=== PATIENT | male | born 1940 | race Hispanic/Latino ===

== ENCOUNTER → 2017-08-07 | Day surgery (SDC) | payer OTHER ==
[2017-08-06 17:02] LABS: BASOPHILS % 0.4 % (0.0-1.0); EOSINOPHILS # (AUTO) 0.1 (0.0-0.4); EOSINOPHILS % 0.9 % (0.0-6.0); HEMATOCRIT 41.9 % (38.2-49.6); HEMOGLOBIN 14.2 g/dL (14.0-18.0); LYMPHOCYTES # (AUTO) 2.2 (1.0-3.2); LYMPHOCYTES % 29.2 % (18.0-39.1); MEAN CORPUSCULAR HEMOGLOBIN 29.5 pg (28-32); MEAN CORPUSCULAR HGB CONC 33.9 g/dL (31-35); MEAN CORPUSCULAR VOLUME 87.1 fL (81-99); MONOCYTES # (AUTO) 0.5 (0.2-0.8); MONOCYTES % 7.2 % (4.4-11.3); NEUTROPHILS # (AUTO) 4.6 (2.1-6.9); NEUTROPHILS % 61.8 % (38.7-80.0); PLATELET COUNT 171 x10e3/uL (140-360); RED BLOOD COUNT 4.81 x10e6/uL (4.3-5.7); RED CELL DISTRIBUTION WIDTH 13.8 % (11.7-14.4)
[~2017-08-07] MED LIST: ACETAMINOPHEN650 M1 PO; ARANESP100 MCG/0. SQ; CARVEDILOL25 MG PO; CARVEDILOL3.125 MG PO; CLONIDINE HCL0.2 MG PO; CREON DR 3,0001 EACH PO; CRESTOR20 MG PO; DILTIAZ ER PO; DIPHENHYDRAMINE25 M2 PO; GABAPENTIN400 MG PO; GLIMEPIRIDE2 MG PO; GLYBURIDE5 MG PO; HEPARIN SO5000 UNIT/ IV; HYDRALAZINE HC100 MG PO; HYDROCHLOROTHIA25 MG PO; IBUPROFEN400 MG PO; ISOSORBIDE DINI30 MG PO; JANUVIA100 MG PO; LISINOPRIL-HCT1 EAC1 PO; LISINOPRIL10 MG PO; LOPERAMIDE2 MG PO; LYRICA75 MG PO; METFORMIN HCL500 M2 PO; METHOCARBAMOL750 MG PO; METOCLOPRAMIDE10 MG PO; MIDAZOLAM HCL 2 MG/2 ML VIAL ONE; NAFCILLIN2 GM/100 M IV; NEOMYCIN-POLYMY10 ML; NIFEDIPINE XL30 MG PO; NITROGLYCERIN0.4 MG SL; PLAVIX75 MG PO; PRAVASTATIN SOD40 MG PO; PRAVASTATIN SOD80 MG PO; PROPOFOL IV EMULSION 10 MG/ML 20 ML VIAL ONE; PROTEIN POWDER454 GM PO; RIFAMPIN300 MG PO; SODIUM CHLORI1000 ML IV; SUCRALFATE1 GM PO; TRADJENTA5 MG PO; TRAJENTA; ULTRAM 50MG50 MG PO; VALACYCLOVIR500 MG PO; VICTOZA 3-0.6 MG/0.1 SC; VITAMIN RENAL PO; ZESTRIL20 MG PO; ZOFRAN ODT4 MG IVP; [UNRECOGNIZED DRUG - OTHER] PO
--- OUTSIDE RECORDS SUMMARY | 2017-08-07 06:07 | XMS REPORT ---
Author Organization Unknown Address [address] [place] [address] Phone [phone] Care Team Providers Care Bobbin Collector Name Role Phone RADHA "HOMERO" FLAVIO WILKINSON 3 [phone] GARRET LIRA 61 Unavailable RON ANAND MD 111 [phone] LISA ESTEBAN 107 [phone] Allergies Code Code System Name Reaction Severity Status Onset NKDA Medications Name Status Start Date Stop Date Allzital 25 mg-325 mg tablet Take 2 tablets every 4 hours by oral route as needed for 30 days. Active Not available amoxicillin 500 mg capsule Completed 04/01/2016 carvedilol 3.125 mg tablet Active Not available clarithromycin 500 mg tablet Completed 04/01/2016 clindamycin HCl 150 mg capsule Completed 04/01/2016 clopidogrel 75 mg tablet Active Not available clotrimazole 1 % topical cream Completed 07/03/2016 Creon 3,000 unit-9,500 unit-15,000 unit capsule,delayed release take 1 capsule with each meal and at bedtime Active Not available dicyclomine 20 mg tablet Completed 04/03/2016 esomeprazole magnesium 40 mg capsule,delayed release Take 1 capsule every day by oral route for 30 days. Active Not available gabapentin 400 mg capsule Completed 06/19/2017 glimepiride 4 mg tablet Active Not available hydrocodone 5 mg-acetaminophen 325 mg tablet Completed 07/03/2016 ibuprofen 400 mg tablet Take 1 tablet 6 times a day by oral route. Active Not available isosorbide dinitrate 30 mg tablet Active Not available Januvia 100 mg tablet Take 1 tablet every day by oral route for 90 days. Completed 07/03/2016 levofloxacin 500 mg tablet Completed 04/03/2016 lidocaine 5 % topical ointment APPLY TO AFFECTED AREA(S) BY TOPICAL ROUTE 1-4 TIMES DAILY NEEDED Active Not available lisinopril 20 mg-hydrochlorothiazide 25 mg tablet Active Not available Lyrica 150 mg capsule Completed 07/23/2017 Lyrica 75 mg capsule Active Not available metformin 500 mg tablet Active Not available metoclopramide 10 mg tablet Active Not available metoclopramide 5 mg tablet Completed 04/03/2016 yltpzgmu-awbijgsjk-dxobscmq 3.5 mg/mL-10,000 unit/mL-0.1% eye drops Completed 03/19/2017 nitroglycerin 0.4 mg sublingual tablet Completed 03/19/2017 omeprazole 20 mg capsule,delayed release Completed 04/03/2016 omeprazole 40 mg capsule,delayed release Completed 04/03/2016 pantoprazole 40 mg tablet,delayed release Completed 04/03/2016 pravastatin 80 mg tablet Active Not available ReliaMed Safety Seal Lancets 30 gauge Completed 11/21/2016 sildenafil (antihypertensive) 20 mg tablet take 2, up to 5 tablets, aabout 20 minutes prior to sexual activity Active Not available Suprep Bowel Prep Kit 17.5 gram-3.13 gram-1.6 gram oral solution Completed 07/23/2017 tamsulosin 0.4 mg capsule Active Not available Tradjenta 5 mg tablet Take 1 tablet every day by oral route for 90 days. Completed 06/19/2017 True Metrix Glucose Test Strip Completed 07/23/2017 True Metrix Level 1 solution Completed 07/03/2016 TRUEplus Lancets 28 gauge Completed 07/23/2017 valacyclovir 1 gram tablet Completed 2017 Victoza 3-Damaso 0.6 mg/0.1 mL (18 mg/3 mL) subcutaneous pen injector Active Not available Notes: Pt did not bring all of his meds and does not know what he is suppose to be taking 06/19/17mm Problems Name Status Onset Date Source Type 2 Diabetes Mellitus Active 02/02/2015 History Pure Hypercholesterolemia Unknown 02/02/2015 History Pure Hyperglyceridemia Unknown 02/02/2015 History Open-angle Glaucoma Active 02/02/2015 History Hypertensive Heart Failure Active 02/02/2015 History Arteriosclerosis of Coronary Artery Bypass Graft Unknown 02/02/2015 History Gastroesophageal Reflux Disease without Esophagitis Active 02/02/2015 History Coronary Bypass Graft Finding Active 02/02/2015 History Long-term Current Use of Insulin Active 02/02/2015 History 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 History Long-term Current Use of Drug Therapy Active 02/02/2015 History Chronic Congestive Heart Failure Unknown 02/14/2016 Chronic Diastolic Heart Failure Active 02/14/2016 Mixed Hyperlipidemia Active 07/03/2016 Morbid Obesity Active 03/19/2017 Herpes Zoster Active 2017 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 Procedures Date Name Performed by 01/10/2016 Removal of Gallbladder Information not available 04/11/2014 Coronary Artery Bypass/reop Information not available 02/14/2016 Electrocardiogram [facility] [address] [facility] [address] [place] [phone] (Work [address]) 03/19/2017 Electrocardiogram [facility] [address] [facility] [address] [place] [address] (Work Place) Notes: 08/02/2015: Bilateral inguinal hernia repair; Surgery Date: at 23 years old CABG Lab Results Date Name Specimen Result Interpretation Description Value Range Status Address 04/24/2017 Urinalysis, Dipstick Color Glucose negative [facility]: [address] [facility] [address], [place] Color Bilirubin negative [facility]: [address] [facility] [address], [place] Color Ketones trace [facility]: [address] [facility] [address], [place] Color Specific [place] 1.025 [facility]: [address] [facility] [address], [place] Color Blood negative [facility]: [address] [facility] [address], [place] [facility] [address] [facility] [address], [place] Color Protein negative [facility]: [address] [facility] [address], [place] Color Urobilinogen 0.2 [facility]: [address] [facility] [address], [place] Color Nitrites negative [facility]: [address] [facility] [address], [place] Color Leukocytes negative [facility]: [address] [facility] [address], [place] 03/19/2017 CBC W/ Auto Diff Normal White Blood Cell Count 6.5 thousand/uL 3.8-10.8 thousand/uL Final [facility]: [address], [place] Normal Red Blood Cell Count 5.33 million/uL 4.20-5.80 million/ uL [facility]: [address], [place] Normal Hemoglobin 15.3 g/dL 13.2-17.1 g/dL [facility]: [address], [place] Normal Hematocrit 45.6 % 38.5-50.0 % Final [facility]: [address] [place] Normal Mcv 85.6 fL 80.0-100.0 fL Final [facility]: [address] [place] Normal Mch 28.7 pg 27.0-33.0 pg Final [facility]: [address] [place] Normal Mchc 33.6 g/dL 32.0-36.0 g/dL Final [facility]: [address] [place] Normal Rdw 13.8 % 11.0-15.0 % Final [facility]: [address] [place] Low Platelet Count 129 thousand/uL 140-400 thousand/uL Final [facility]: [address] [place] High Mpv 12.6 fL 7.5-12.5 fL Final [facility]: [address] [place] Normal Absolute Neutrophils 4394 cells/uL 6892-7169 cells/uL Final [facility]: [address] [place] Normal Absolute Lymphocytes 1547 cells/uL 850-3900 cells/uL Final [facility]: [address] [place] Normal Absolute Monocytes 462 cells/uL 200-950 cells/uL Final [facility]: [address] [place] Normal Absolute Eosinophils 59 cells/uL 15-500 cells/uL Final [facility]: [address] [place] Normal Absolute Basophils 39 cells/uL 0-200 cells/uL Final [facility]: [address] [place] Normal Neutrophils 67.6 % Final [facility]: [address] [place] Normal Lymphocytes 23.8 % Final [facility]: [address] [place] Normal Monocytes 7.1 % Final [facility]: [address] [place] Normal Eosinophils 0.9 % Final [facility]: [address] [place] Normal Basophils 0.6 % Final [facility]: [address] [place] 03/19/2017 PSA, Serum or Plasma Normal PSA, Total 0.8 NG/mL < or= 4.0 NG/mL Final [facility]: [address] [place] [address] 03/19/2017 T4, Total, Serum Normal T4 (Thyroxine), Total 8.3 mcg/ dL 4.5-12.0 mcg/dL Final [facility]: [address] [place] [address] 03/19/2017 TSH, Serum or Plasma Normal Tsh 1.64 mIU/L 0.40-4.50 mIU/L Final [facility]: [address] [place] [address] 03/19/2017 HbA1C (Hemoglobin a1C), Blood High Hemoglobin a1C 7.9 % of total HGB <5.7 % of total HGB Final [facility]: [address] [place] [address] EAG (mg/dL) 180 (calc) Final [facility]: [address] [place] [address] EAG (mmol/L) 10.0 (calc) Final [facility]: [address] [place] [address] 03/19/2017 CMP, Serum or Plasma High Glucose 234 mg/dL 65-99 mg/ dL Final [facility]: [address] [place] [address] Normal Urea Nitrogen (BUN) 19 mg/dL 7-25 mg/dL Final [facility]: [address] [place] [address] Normal Creatinine 0.96 mg/dL 0.70-1.18 mg/dL Final [facility]: [address] [place] [address] Normal eGFR Non-afr. Vincentian 78 mL/min/1.73m2 > or=60 mL/min/ 1.73m2 Final [facility]: [address] [place] [address] Normal eGFR 90 mL/min/1.73m2 > or=60 mL/min/ 1.73m2 Final [facility]: [address] [place] [address] BUN/creatinine Ratio not applicable (calc) 6-22 (calc) Final [facility]: [address] [place] [address] Normal Sodium 136 mmol/L 135-146 mmol/L Final [facility]: [address] [place] [address] Normal Potassium 4.4 mmol/L 3.5-5.3 mmol/L Final [facility]: [address] Normal Chloride 98 mmol/L 98-110 mmol/L Final [facility]: [address] Normal Carbon Dioxide 27 mmol/L 20-31 mmol/L Final [facility]: [address] Normal Calcium 9.1 mg/dL 8.6-10.3 mg/dL Final [facility]: [address] Normal Protein, Total 7.5 g/dL 6.1-8.1 g/dL Final [facility]: [address] Normal Albumin 4.3 g/dL 3.6-5.1 g/dL Final [facility]: [address] Normal Globulin 3.2 g/dL (calc) 1.9-3.7 g/dL (calc) Final [facility]: [address] Normal Albumin/globulin Ratio 1.3 (calc) 1.0-2.5 (calc) Final [facility]: [address] Normal Bilirubin, Total 1.1 mg/dL 0.2-1.2 mg/dL Final [facility]: [address] Normal Alkaline Phosphatase 56 U/L 40-115 U/L Final [facility]: [address] Normal Ast 20 U/L 10-35 U/L Final [facility]: [address] Normal Alt 17 U/L 9-46 U/L Final [facility]: [address] 03/19/2017 Lipid Panel, Serum Normal Cholesterol, Total 170 mg/dL <200 mg/dL Final [facility]: [address] Low HDL Cholesterol 34 mg/dL >40 mg/dL Final [facility]: [address] High Triglycerides 184 mg/dL <150 mg/dL Final [facility]: [address] High LDL-cholesterol 105 mg/dL (calc) Final [facility]: [address] High Chol/hdlc Ratio 5.0 (calc) <5.0 (calc) Final [facility]: [address] High Non HDL Cholesterol 136 mg/dL (calc) <130 mg/dL (calc) Final [facility] [address] [facility] Lipid Panel, Serum Normal Cholesterol, Total 170 mg/dL 125-200 mg/dL Final [facility]: [address] Low HDL Cholesterol 34 mg/dL > or=40 mg/dL Final [facility]: [address] High Triglycerides 261 mg/dL <150 mg/dL Final [facility]: [address] Normal LDL-cholesterol 84 mg/dL (calc) <130 mg/dL (calc) Final [facility]: [address] Normal Chol/hdlc Ratio 5.0 (calc) < or=5.0 (calc) Final [facility]: [address] Normal Non HDL Cholesterol 136 mg/dL (calc) Final [facility]: [address] 11/22/2016 CBC W/ Auto Diff Normal White Blood Cell Count 6.9 thousand/uL 3.8-10.8 thousand/uL Final [facility]: [address] Normal Red Blood Cell Count 5.30 million/uL 4.20-5.80 million/ uL Final [facility]: [address] Normal Hemoglobin 15.2 g/dL 13.2-17.1 g/dL Final [facility]: [address] Normal Hematocrit 45.4 % 38.5-50.0 % Final [facility]: [address] Normal Mcv 85.7 fL 80.0-100.0 fL Final [facility]: [address] [facility] Normal Mch 28.7 pg 27.0-33.0 pg Final [facility]: [address] Normal Mchc 33.5 g/dL 32.0-36.0 g/dL Final [facility]: [address] Normal Rdw 13.7 % 11.0-15.0 % Final [facility]: [address] [place] Normal Platelet Count 140 thousand/uL 140-400 thousand/uL Final [facility]: [address] [place] Normal Mpv 12.5 fL 7.5-12.5 fL Final [facility]: [address] [place] Normal Absolute Neutrophils 4306 cells/uL 2289-6600 cells/uL Final [facility]: [address] [place] Normal Absolute Lymphocytes 2008 cells/uL 850-3900 cells/uL Final [facility]: [address] [place] Normal Absolute Monocytes 511 cells/uL 200-950 cells/uL Final [facility]: [address] [place] Normal Absolute Eosinophils 48 cells/uL 15-500 cells/uL Final [facility]: [address] [place] Normal Absolute Basophils 28 cells/uL 0-200 cells/uL Final [facility]: [address] [place] Normal Neutrophils 62.4 % Final [facility]: [address] [place] Normal Lymphocytes 29.1 % Final [facility]: [address] [place] Normal Monocytes 7.4 % Final [facility]: [address] [place] Normal Eosinophils 0.7 % Final [facility]: [address] [place] Normal Basophils 0.4 % Final [facility]: [address] [place] 11/22/2016 CMP, Serum or Plasma High Glucose 122 mg/dL 65-99 mg/ dL Final [facility]: [address] [place] Normal Urea Nitrogen (BUN) 20 mg/dL 7-25 mg/dL Final [facility]: [address] [place] Normal Creatinine 1.17 mg/dL 0.70-1.18 mg/dL Final [facility]: [address] [facility] Normal eGFR Non-afr. Vincentian 61 mL/min/1.73m2 > or=60 mL/min/ 1.73m2 Final [facility]: [address] [place] Normal eGFR 71 mL/min/1.73m2 > or=60 mL/min/ 1.73m2 Final [facility]: [address] BUN/creatinine Ratio not applicable (calc) 6-22 (calc) Final [facility]: [address] [facility] Normal Sodium 136 mmol/L 135-146 mmol/L Final [facility]: [address] Normal Potassium 4.2 mmol/L 3.5-5.3 mmol/L Final [facility]: [address] Normal Chloride 101 mmol/L 98-110 mmol/L Final [facility]: [address] Normal Carbon Dioxide 23 mmol/L 20-31 mmol/L Final [facility]: [address] Normal Calcium 9.2 mg/dL 8.6-10.3 mg/dL Final [facility]: [address] Normal Protein, Total 7.8 g/dL 6.1-8.1 g/dL Final [facility]: [address] Normal Albumin 4.4 g/dL 3.6-5.1 g/dL Final [facility]: [address] Normal Globulin 3.4 g/dL (calc) 1.9-3.7 g/dL (calc) Final [facility]: [address] Normal Albumin/globulin Ratio 1.3 (calc) 1.0-2.5 (calc) Final [facility]: [address] Normal Bilirubin, Total 1.2 mg/dL 0.2-1.2 mg/dL Final [facility]: [address] Normal Alkaline Phosphatase 62 U/L 40-115 U/L Final [facility]: [address] Normal Ast 19 U/L 10-35 U/L Final [facility]: [address] Normal Alt 20 U/L 9-46 U/L Final [facility] [address] [facility] 11/22/2016 HbA1C (Hemoglobin a1C), Blood High Hemoglobin a1C 7.3 % of total HGB <5.7 % of total HGB Final [facility]: [address] EAG (mg/dL) 163 (calc) Final [facility]: [address] EAG (mmol/L) 9.0 (calc) Final [facility]: [address] [address], [place] 11/21/2016 CBC W/ Auto Diff No observation recorded. [facility] [facility] [place] 11/21/2016 HbA1C (Hemoglobin a1C), Blood No observation recorded. [facility] ([facility]): [address] [facility], [place] 11/21/2016 CMP, Serum or Plasma No observation recorded. [facility] ([facility]): [address] [facility], [place] 11/21/2016 Lipid Panel, Serum No observation recorded. [facility] [address] [facility] [place] 07/03/2016 Lipid Panel, Serum Normal Cholesterol, Total 168 mg/dL 125-200 mg/dL Final [facility]: [address] [facility], [place] Low HDL Cholesterol 36 mg/dL > or=40 mg/dL Final [facility]: [address] [facility], [place] High Triglycerides 196 mg/dL <150 mg/dL Final [facility]: [address] [facility], [place] Normal LDL-cholesterol 93 mg/dL (calc) <130 mg/dL (calc) Final [facility]: [address] [facility], [place] Normal Chol/hdlc Ratio 4.7 (calc) < or=5.0 (calc) Final [facility]: [address] [facility], [place] Normal Non HDL Cholesterol 132 mg/dL (calc) Final [facility]: [address] [facility], [place] 07/03/2016 CMP, Serum or Plasma High Glucose 189 mg/dL 65-99 mg/ dL Final [facility]: [address] [facility], [place] Normal Urea Nitrogen (BUN) 14 mg/dL 7-25 mg/dL Final [facility]: [address] [facility], [place] Normal Creatinine 0.94 mg/dL 0.70-1.18 mg/dL Final [facility]: [address] [facility], [place] Normal eGFR Non-afr. Vincentian 80 mL/min/1.73m2 > or=60 mL/min/ 1.73m2 Final [facility]: [address] [facility], [place] Normal eGFR 92 mL/min/1.73m2 > or=60 mL/min/ 1.73m2 Final [facility]: 70 [facility], [place] BUN/creatinine Ratio not applicable (calc) 6-22 (calc) Final [facility]: 70 [facility], [place] Normal Sodium 136 mmol/L 135-146 mmol/L Final [facility]: 70 [facility], [place] Normal Potassium 4.4 mmol/L 3.5-5.3 mmol/L Final [facility]: 70 [facility], [place] Normal Chloride 98 mmol/L 98-110 mmol/L Final [facility]: 70 [facility], [place] Normal Carbon Dioxide 28 mmol/L 20-31 mmol/L Final [facility]: 70 [facility], [place] Normal Calcium 9.3 mg/dL 8.6-10.3 mg/dL Final [facility]: 70 [facility], [place] Normal Protein, Total 7.7 g/dL 6.1-8.1 g/dL Final [facility]: 70 [facility], [place] Normal Albumin 4.2 g/dL 3.6-5.1 g/dL Final [facility]: 70 [facility], [place] Normal Globulin 3.5 g/dL (calc) 1.9-3.7 g/dL (calc) Final [facility]: 70 [facility], [place] Normal Albumin/globulin Ratio 1.2 (calc) 1.0-2.5 (calc) Final [facility]: 70 [facility], [place] Normal Bilirubin, Total 1.2 mg/dL 0.2-1.2 mg/dL Final [facility]: 70 [facility], [place] Normal Alkaline Phosphatase 64 U/L 40-115 U/L Final [facility]: 70 [facility], [place] Normal Ast 15 U/L 10-35 U/L Final [facility] [place] Normal Alt 11 U/L 9-46 U/L Final [facility]: [address], [place] 07/03/2016 CBC W/ Auto Diff Normal White Blood Cell Count 6.9 thousand/uL 3.8-10.8 thousand/uL Final [facility]: 70 [facility], [place] Normal Red Blood Cell Count 5.23 million/uL 4.20-5.80 million/ uL Final [facility]: 70 [facility], [place] Normal Hemoglobin 15.0 g/dL 13.2-17.1 g/dL Final [facility]: 70 [facility], [place] Normal Hematocrit 44.6 % 38.5-50.0 % Final [facility]: [address] [place] [address], [place] Normal Mcv 85.4 fL 80.0-100.0 fL Final [facility] Lab: 70 [facility], [place] Normal Mch 28.6 pg 27.0-33.0 pg Final [facility] Lab: [address] [place] [address], [place] Normal Mchc 33.5 g/dL 32.0-36.0 g/dL Final [facility] Lab: [address], [place] Normal Rdw 14.6 % 11.0-15.0 % [facility] Lab: 70 [facility], [place] Normal Platelet Count 151 thousand/uL 140-400 thousand/uL Final [facility] Lab: 70 [facility], [place] Normal Mpv 10.5 fL 7.5-12.5 fL Final [facility] [place] Normal Absolute Neutrophils 4457 cells/uL 7262-5155 cells/uL Final [facility] Lab: 70 [facility], [place] Normal Absolute Lymphocytes 2049 cells/uL 850-3900 cells/uL Final [facility]: 70 [facility], [place] Normal Absolute Monocytes 324 cells/uL 200-950 cells/uL Final [facility]: [address] [place] [address], [place] Normal Absolute Eosinophils 48 cells/uL 15-500 cells/uL Final [facility] Lab: [address], [place] Normal Absolute Basophils 21 cells/uL 0-200 cells/uL Final [facility]: [address], [place] Normal Neutrophils 64.6 % Final [facility] Lab: [address], [place] Normal Lymphocytes 29.7 % Final [facility] Lab: [address], [place] Normal Monocytes 4.7 % Final [facility] Lab: [address], [place] Normal Eosinophils 0.7 % Final [facility] Lab: [address], [place] Normal Basophils 0.3 % Final [facility] Lab: [address], [place] 07/03/2016 HbA1C (Hemoglobin a1C), Blood High Hemoglobin a1C 8.0 % of total HGB <5.7 % of total HGB Final [facility] Lab: [address], [place] Pro BNP (Pro B-type Natriuretic Peptide), Serum or Plasma Normal B Type Natriuretic Peptide (BNP) 26 pg/mL <100 pg/mL Final [facility]: [address], [place] Electrocardiogram Rate & Rhythm [facility]: [address] [facility] [address], [place] Qrs [facility]: [address]607 [facility] [address], [place] Interval [facility]: [address] [facility] [address], [place] QRS Duration [facility]: [address] [facility] [address], [place] QT Interval [facility]: 41999 [facility] [address], [place] Albumin:creatinine Ratio, Urine Type Urine Microlalbumin 30 mg/ L [facility]: [address]69 [facility] [address], [place] Type Urine Creatinine 100 mg/dL [facility]: [address] [facility] [address], [place] Type A:C Ratio <30 mg/g (Normal) [facility]: 8[address] [facility] [address], [place] Albumin:creatinine Ratio, Urine Type Urine Microlalbumin 30 mg/ L [facility]: 17089 [facility] [address], [place] Type Urine Creatinine 200 mg/dL [facility]: [address] [facility] [address], [place] Type A:C Ratio <30 mg/g (Normal) [facility]: [address] [facility] [address], [place] Electrocardiogram Rate & Rhythm [facility]: [address] [address], [place] Qrs [facility]: [address] [address], [place] Interval [facility]: [address] [address] [address], [place] QRS Duration [facility]: [address] [address] [address], [place] QT Interval [facility]: [address] [address] [address], [place] Past Encounters 07/23/2017 Adult Health Examination; Body Mass Index 30+ - Obesity; Morbid Obesity; Moderately Severe Recurrent Major Depression; Hypertensive Heart Failure; Coronary Bypass Graft Finding; Chronic Combined Systolic and Diastolic Heart Failure; Mixed Hyperlipidemia; 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 07/01/2017 Type 2 Diabetes Mellitus; Hypertensive Heart Failure Garret Lira: [address] [address], Ph. 06/19/2017 Hypertensive Heart Failure; Chronic Combined Systolic and Diastolic Heart Failure; Type 2 Diabetes Mellitus; Mixed Hyperlipidemia; Post-herpetic Neuritis ; Lower Urinary Tract Symptoms Due to Benign Prostatic Hypertrophy Radha Gray MD: [address] [address], Ph. 2017 Herpes Zoster; Abdominal Bloating PRAFUL CowartP: [address] [address], Ph. 06/03/2017 Type 2 Diabetes Mellitus; Hypertensive Heart Failure Garret Lira: [address] [address], Ph. 05/28/2017 Herpes Zoster; Abdominal Bloating Radha Gray MD: [address] [address], Ph. 04/29/2017 Garret Lira: 9055 [facility] [address], [place] [address], Ph. 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 03/19/2017 Adult Health Examination; Morbid Obesity; Body Mass Index 30+ - Obesity; Type 2 Diabetes Mellitus; Hypertensive Heart Failure; Chronic Diastolic Heart Failure; Coronary Bypass Graft Finding; Antiplatelet Agent Therapy; Long-term Current Use of Insulin; Abdominal Bloating; Gastroesophageal Reflux Disease without Esophagitis; Open-angle Glaucoma; Mixed Hyperlipidemia; Impotence of Organic Origin; Depression Screening; Advance Directive Discussed with Patient; Vaccine Refused by Patient; Screening for Malignant Neoplasm of Prostate; Screening for Malignant Neoplasm of Colon Radha Gray MD: [id number] [facility], [address] [address], Ph. 02/10/2017 Garret Lira: 9055 [facility], [address] [address], Ph. 01/06/2017 Type 2 Diabetes Mellitus; Hypertensive Heart Failure Garret Lira: 9055 [facility], [address] [address], Ph. 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 10/04/2016 Garret Lira: 9055 [facility], [address] [address], Ph. 08/09/2016 Garret Lira: 9055 [facility], [address] [address], [place] [address], Ph. 07/09/2016 Type 2 Diabetes Mellitus; Hypertensive Heart Failure Garret Lira: 9055 [place] [facility], [facility] [address], [place] [address], Ph. 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 04/03/2016 Follow-up Visit; Type 2 Diabetes Mellitus; Burping Radha Gray MD: 05355 [facility], [address] [address], Ph. 02/14/2016 Surgical Follow-up; Hypertensive Heart Failure; Chronic Diastolic Heart Failure ; Coronary Bypass Graft Finding Radha Gray MD: 47983 [facility], [address] [address], Ph. Social History Smoking Status Never Smoker Vaccine List Notes: decline's all vaccine's -07/23/2017-jose Plan of Care Patient Instructions Problem: The patient has a diagnosis of DIABETES Goal:The patients condition will be managed in the outpatient setting and the patients blood sugar will be within normal range. Interventions: -Educate the pt on the importance of blood glucose monitoring daily, keeping a log and taking medications as prescribed. - Educate the importance of eating small healthy meals such as fish chicken, complex carbohydrates-legumes, and whole grains, to stabilize blood sugars. -Educate pt on the s/s of hypoglycemia such as vertigo, CARR, confusion, weakness , anxiety, nervousness, light headed, sweaty, hungry and rapid HR. -Educate patient if blood sugar is <70 or if having any symptoms of hypoglycemia, take one of followin/2 can of regular soda pop, 1 tablespoon of sugar, 1/2 cup of orange juice, or 1 cup of milk. -Educate pt on the S/S of hyperglycemia such as blurred vision, fatigue, CARR, frequent urination, increased thirst. -Educate the pt that a HgAIC is an average of their blood glucose levels over the past 3 months and that it is important to have lab draw q3-6 months. -Educate the patient that they will need to maintain a BP of <140/80. -Educate the patient on importance of annual flu and pneumonia vaccinations -Educate pt that they will need a dilated eye exam and a comprehensive foot exam yearly, and a daily self exam of their feet.(check for dry, cracked skin, look for blisters, cuts scratches, or other sores, check for redness, increased warmth or tenderness when you touch an area, watch for ingrown toenails, corns, and calluses) -Educate pt that they will need a lipid profile yearly,(women)HDL>50LDL<100/TG< 150/HDL>40 (men) -Educate on an exercise routine. At least 30 min of aerobic exercise, 3-5 times a week. (unless an activity restriction from the provider) -Educate the patient on consistent glucose monitoring and when to report values to the provider. Contact Provider if blood glucose is consistently > 240 after taking medications, or if blood glucose is < 60 or patient is symptomatic after interventions. Problem:The patient has a diagnosis of Hypertension Goal:The patients condition will be managed in the outpatient setting and blood pressure will be within normal limits. Interventions: -Encourage patient to take medication as prescribed. -Encourage patient to decrease sodium intake and limit processed foods and caffeinated drinks. Eat fruits/vegetables. -Encourage patient to monitor blood pressure and keep a log with readings. Bring readings to next scheduled appointment. -Encourage pt to exercise regularly 3-5 times a week for 30 min, unless the patients activity is restricted by the provider. Educate to stay at a healthy weight. Losing weight can lower your blood pressure -Educate patient that hypertension usually has no symptoms but some people may experience the following symptoms: blurred vision, fatigue, nose bleeds, chest pain, and swooshing sound in ears. -Educate patient to take BP prior to medications, and to ensure medications is working can take blood pressure 30min to 1 hour after taking BP medication Problem: The patient has a diagnosis of DIABETES Goal:The patients condition will be managed in the outpatient setting and the patients blood sugar will be within normal range. Interventions: -Educate the pt on the importance of blood glucose monitoring daily, keeping a log and taking medications as prescribed. - Educate the importance of eating small healthy meals such as fish chicken, complex carbohydrates-legumes, and whole grains, to stabilize blood sugars. -Educate pt on the s/s of hypoglycemia such as vertigo, CARR, confusion, weakness , anxiety, nervousness, light headed, sweaty, hungry and rapid HR. -Educate patient if blood sugar is <70 or if having any symptoms of hypoglycemia, take one of followin/2 can of regular soda pop, 1 tablespoon of sugar, 1/2 cup of orange juice, or 1 cup of milk. -Educate pt on the S/S of hyperglycemia such as blurred vision, fatigue, CARR, frequent urination, increased thirst. -Educate the pt that a HgAIC is an average of their blood glucose levels over the past 3 months and that it is important to have lab draw q3-6 months. -Educate the patient that they will need to maintain a BP of <140/80. -Educate the patient on importance of annual flu and pneumonia vaccinations -Educate pt that they will need a dilated eye exam and a comprehensive foot exam yearly, and a daily self exam of their feet.(check for dry, cracked skin, look for blisters, cuts scratches, or other sores, check for redness, increased warmth or tenderness when you touch an area, watch for ingrown toenails, corns, and calluses) -Educate pt that they will need a lipid profile yearly,(women)HDL>50LDL<100/TG< 150/HDL>40 (men) -Educate on an exercise routine. At least 30 min of aerobic exercise, 3-5 times a week. (unless an activity restriction from the provider) -Educate the patient on consistent glucose monitoring and when to report values to the provider. Contact Provider if blood glucose is consistently > 240 after taking medications, or if blood glucose is < 60 or patient is symptomatic after interventions. Problem:The patient has a diagnosis of Hypertension Goal:The patients condition will be managed in the outpatient setting and blood pressure will be within normal limits. Interventions: -Encourage patient to take medication as prescribed. -Encourage patient to decrease sodium intake and limit processed foods and caffeinated drinks. Eat fruits/vegetables. -Encourage patient to monitor blood pressure and keep a log with readings. Bring readings to next scheduled appointment. -Encourage pt to exercise regularly 3-5 times a week for 30 min, unless the patients activity is restricted by the provider. Educate to stay at a healthy weight. Losing weight can lower your blood pressure -Educate patient that hypertension usually has no symptoms but some people may experience the following symptoms: blurred vision, fatigue, nose bleeds, chest pain, and swooshing sound in ears. -Educate patient to take BP prior to medications, and to ensure medications is working can take blood pressure 30min to 1 hour after taking BP medication Problem: The patient has a diagnosis of DIABETES Goal:The patients condition will be managed in the outpatient setting and the patients blood sugar will be within normal range. Interventions: -Educate the pt on the importance of blood glucose monitoring daily, keeping a log and taking medications as prescribed. - Educate the importance of eating small healthy meals such as fish chicken, complex carbohydrates-legumes, and whole grains, to stabilize blood sugars. -Educate pt on the s/s of hypoglycemia such as vertigo, CARR, confusion, weakness , anxiety, nervousness, light headed, sweaty, hungry and rapid HR. -Educate patient if blood sugar is <70 or if having any symptoms of hypoglycemia, take one of followin/2 can of regular soda pop, 1 tablespoon of sugar, 1/2 cup of orange juice, or 1 cup of milk. -Educate pt on the S/S of hyperglycemia such as blurred vision, fatigue, CARR, frequent urination, increased thirst. -Educate the pt that a HgAIC is an average of their blood glucose levels over the past 3 months and that it is important to have lab draw q3-6 months. -Educate the patient that they will need to maintain a BP of <140/80. -Educate the patient on importance of annual flu and pneumonia vaccinations -Educate pt that they will need a dilated eye exam and a comprehensive foot exam yearly, and a daily self exam of their feet.(check for dry, cracked skin, look for blisters, cuts scratches, or other sores, check for redness, increased warmth or tenderness when you touch an area, watch for ingrown toenails, corns, and calluses) -Educate pt that they will need a lipid profile yearly,(women)HDL>50LDL<100/TG< 150/HDL>40 (men) -Educate on an exercise routine. At least 30 min of aerobic exercise, 3-5 times a week. (unless an activity restriction from the provider) -Educate the patient on consistent glucose monitoring and when to report values to the provider. Contact Provider if blood glucose is consistently > 240 after taking medications, or if blood glucose is < 60 or patient is symptomatic after interventions. Problem:The patient has a diagnosis of Hypertension Goal:The patients condition will be managed in the outpatient setting and blood pressure will be within normal limits. Interventions: -Encourage patient to take medication as prescribed. -Encourage patient to decrease sodium intake and limit processed foods and caffeinated drinks. Eat fruits/vegetables. -Encourage patient to monitor blood pressure and keep a log with readings. Bring readings to next scheduled appointment. -Encourage pt to exercise regularly 3-5 times a week for 30 min, unless the patients activity is restricted by the provider. Educate to stay at a healthy weight. Losing weight can lower your blood pressure -Educate patient that hypertension usually has no symptoms but some people may experience the following symptoms: blurred vision, fatigue, nose bleeds, chest pain, and swooshing sound in ears. -Educate patient to take BP prior to medications, and to ensure medications is working can take blood pressure 30min to 1 hour after taking BP medication Problem: The patient has a diagnosis of DIABETES Goal:The patients condition will be managed in the outpatient setting and the patients blood sugar will be within normal range. Interventions: -Educate the pt on the importance of blood glucose monitoring daily, keeping a log and taking medications as prescribed. - Educate the importance of eating small healthy meals such as fish chicken, complex carbohydrates-legumes, and whole grains, to stabilize blood sugars. -Educate pt on the s/s of hypoglycemia such as vertigo, CARR, confusion, weakness , anxiety, nervousness, light headed, sweaty, hungry and rapid HR. -Educate patient if blood sugar is <70 or if having any symptoms of hypoglycemia, take one of followin/2 can of regular soda pop, 1 tablespoon of sugar, 1/2 cup of orange juice, or 1 cup of milk. -Educate pt on the S/S of hyperglycemia such as blurred vision, fatigue, CARR, frequent urination, increased thirst. -Educate the pt that a HgAIC is an average of their blood glucose levels over the past 3 months and that it is important to have lab draw q3-6 months. -Educate the patient that they will need to maintain a BP of <140/80. -Educate the patient on importance of annual flu and pneumonia vaccinations -Educate pt that they will need a dilated eye exam and a comprehensive foot exam yearly, and a daily self exam of their feet.(check for dry, cracked skin, look for blisters, cuts scratches, or other sores, check for redness, increased warmth or tenderness when you touch an area, watch for ingrown toenails, corns, and calluses) -Educate pt that they will need a lipid profile yearly,(women)HDL>50LDL<100/TG< 150/HDL>40 (men) -Educate on an exercise routine. At least 30 min of aerobic exercise, 3-5 times a week. (unless an activity restriction from the provider) -Educate the patient on consistent glucose monitoring and when to report values to the provider. Contact Provider if blood glucose is consistently > 240 after taking medications, or if blood glucose is < 60 or patient is symptomatic after interventions. Problem:The patient has a diagnosis of Hypertension Goal:The patients condition will be managed in the outpatient setting and blood pressure will be within normal limits. Interventions: -Encourage patient to take medication as prescribed. -Encourage patient to decrease sodium intake and limit processed foods and caffeinated drinks. Eat fruits/vegetables. -Encourage patient to monitor blood pressure and keep a log with readings. Bring readings to next scheduled appointment. -Encourage pt to exercise regularly 3-5 times a week for 30 min, unless the patients activity is restricted by the provider. Educate to stay at a healthy weight. Losing weight can lower your blood pressure -Educate patient that hypertension usually has no symptoms but some people may experience the following symptoms: blurred vision, fatigue, nose bleeds, chest pain, and swooshing sound in ears. -Educate patient to take BP prior to medications, and to ensure medications is working can take blood pressure 30min to 1 hour after taking BP medication Reminders Provider Appointments None recorded. Lab None recorded. Referral None recorded. Procedures None recorded. Surgeries None recorded. Imaging None recorded. Vitals 07/23/2017 08:30AM AWV Height Weight BMI Blood Pressure 5 ft 9 in 253.8 lbs 37.5 kg/m2 120/62 mm[Hg] 06/19/2017 08:00AM Est Patient Height Weight BMI Blood Pressure 5 ft 9 in 253 lbs 37.4 kg/m2 129/69 mm[Hg] 2017 08:00AM Est Patient Height Weight BMI Blood Pressure 5 ft 9 in 252 lbs 37.2 kg/m2 120/78 mm[Hg] 05/28/2017 08:45AM Est Patient Height Weight BMI Blood Pressure 5 ft 9 in 257.8 lbs 38.1 kg/m2 112/71 mm[Hg] 04/24/2017 02:30PM Est Patient Height Weight BMI Blood Pressure 5 ft 9 in 260 lbs 38.4 kg/m2 (1) 132/71 mm[Hg] (2) 122/64 mm[Hg] 03/19/2017 08:00AM Est Patient Height Weight BMI Blood Pressure 5 ft 9 in 263.2 lbs 38.9 kg/m2 129/76 mm[Hg] 11/21/2016 02:30PM Est Patient Height Weight BMI Blood Pressure 5 ft 9 in 265.2 lbs 39.2 kg/m2 129/72 mm[Hg] 07/03/2016 08:30AM Est Patient Height Weight BMI Blood Pressure 5 ft 9 in 261 lbs 38.5 kg/m2 128/76 mm[Hg] 04/03/2016 08:30AM Est Patient Height Weight BMI Blood Pressure 5 ft 9 in 254.2 lbs 37.5 kg/m2 151/73 mm[Hg] 02/14/2016 08:45AM Est Patient Height Weight BMI Blood Pressure 5 ft 9 in 256.8 lbs 37.9 kg/m2 121/75 mm[Hg] 08/02/2015 BMI 39.07 kg/m2 08/02/2015 Height Weight Blood Pressure 5 ft 9 in 264.6 lbs 152/68 mm[Hg] 05/03/2015 Height Weight BMI Blood Pressure 5 ft 9 in 265.6 lbs 39.22 kg/m2 138/70 mm[Hg] 02/02/2015 Height Weight BMI Blood Pressure 5 ft 9 in 265.4 lbs 39.19 kg/m2 130/76 mm[Hg] 11/18/2014 Height Weight BMI Blood Pressure 5 ft 9 in 262.6 lbs 38.78 kg/m2 123/68 mm[Hg] 11/09/2014 Height Weight BMI Blood Pressure 5 ft 9 in 266 lbs 39.28 kg/m2 126/80 mm[Hg] 11/02/2014 Height Weight BMI Blood Pressure 5 ft 9 in 266.4 lbs 39.34 kg/m2 124/67 mm[Hg] 08/03/2014 Height Weight BMI Blood Pressure 5 ft 9 in 258.4 lbs 38.15 kg/m2 122/70 mm[Hg] 05/02/2014 Height Weight BMI Blood Pressure 5 ft 9 in 247.2 lbs 36.50 kg/m2 120/60 mm[Hg] 04/18/2014 Height Weight BMI Blood Pressure 5 ft 9 in 270.2 lbs 39.90 kg/m2 120/80 mm[Hg] 03/02/2014 Weight Blood Pressure 270.2 lbs 130/70 mm[Hg] 03/02/2014 Height BMI 5 ft 9 in 39.90 kg/m2 02/09/2014 Height Weight BMI Blood Pressure 5 ft 9 in 267.6 lbs 39.51 kg/m2 160/80 mm[Hg] 11/24/2013 Height Weight 5 ft 9 in 268.6 lbs 11/17/2013 Height Weight 5 ft 9 in 268.5 lbs 11/10/2013 Height Weight 5 ft 9 in 268.4 lbs 08/09/2013 Height Weight 5 ft 9 in 290 lbs 05/06/2013 Height Weight 5 ft 9 in 268 lbs 03/10/2013 Height Weight 5 ft 9 in 266.8 lbs 02/03/2013 Height Weight 5 ft 9 in 268.2 lbs 10/28/2012 Height Weight 5 ft 9 in 268 lbs 09/02/2012 Height Weight 5 ft 9 in 266.2 lbs 07/29/2012 Height Weight 5 ft 9 in 264.2 lbs 04/23/2012 Height Weight 5 ft 9 in 266.2 lbs 01/15/2012 Height Weight 5 ft 9 in 274.4 lbs 10/09/2011 Height Weight 5 ft 9 in 275.4 lbs 08/21/2011 Weight 269.8 lbs 08/21/2011 Height 5 ft 9 in 07/09/2011 Height Weight 5 ft 9 in 271.6 lbs 04/09/2011 Height Weight 5 ft 9 in 270.8 lbs 01/17/2011 Height Weight 5 ft 9 in 268 lbs 01/09/2011 Height Weight 5 ft 9 in 270.4 lbs 12/31/2010 Height Weight 5 ft 9 in 270.4 lbs 09/28/2010 Height Weight 5 ft 9 in 274.2 lbs 06/14/2010 Height Weight 5 ft 9 in 273.2 lbs 02/28/2010 Height Weight 5 ft 9 in 274.2 lbs 11/28/2009 Weight 274 lbs 08/24/2009 Height Weight 5 ft 9 in 269.8 lbs 02/07/2009 Weight 264 lbs 09/27/2008 Height 5 ft 9 in 09/27/2008 Weight 267 lbs 05/30/2008 Weight 269 lbs 02/01/2008 Weight 270.7 lbs 03/30/2007 Height Weight 5 ft 9 in 271.9 lbs 12/05/2006 Weight 274.2 lbs 08/15/2006 Weight 267.7 lbs 05/23/2006 Height Weight 5 ft 9 in 273.7 lbs 11/20/2005 Height Weight 5 ft 9 in 261 lbs 06/26/2005 Height Weight 5 ft 9 in 262 lbs 12/25/2004 Height Weight 5 ft 9 in 265 lbs
--- OUTSIDE RECORDS SUMMARY | 2017-08-07 06:07 | XMS REPORT | Clinical Summary ---
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 Disp. Refills Start End Date Status Date glimepiride (AMARYL) 4 MG Take 4 mg by mouth 2 Active tablet (two) times a day. clopidogrel (PLAVIX) 75 Take 75 mg by mouth Active mg tablet daily. metFORMIN (GLUCOPHAGE) Take 500 mg by mouth 2 Active 500 mg tablet (two) times a day with meals. carvedilol (COREG) 3.125 Take 3.125 mg by mouth 2 Active MG tablet (two) times a day with meals. tamsulosin (FLOMAX) 0.4 Take 0.4 mg by mouth Active mg capsule,extended daily. release 24hr pravastatin (PRAVACHOL) Take 80 mg by mouth Active 80 MG tablet nightly. lisinopril-hydrochlorothi Take 1 tablet by mouth Active azide daily. (PRINZIDE,ZESTORETIC) 20-25 mg per tablet isosorbide dinitrate Take 30 mg by mouth 2 Active (ISORDIL) 30 MG tablet (two) times a day. valACYclovir (VALTREX) Take 1 tablet (1,000 mg 21 tablet 0 05/26/19 06/26/19 1000 MG tablet total) by mouth 3 (three) 18 18 times a day for 30 days. ibuprofen (ADVIL,MOTRIN) Take 1 tablet (400 mg 20 tablet 0 05/26/19 06/26/19 400 MG tablet total) by mouth every 6 18 18 (six) hours as needed for mild pain for up to 30 days. metoclopramide (REGLAN) Take 1 tablet (10 mg 30 tablet 0 07/08/19 10 MG tablet total) by mouth every 6 18 18 (six) hours for 30 days. Active Problems Not on file Encounters Date Type Specialty Care Team Description 07/06/2017 Emergency Emergency Medicine Jose Martin Storm Acute infective - MD Rohit gastroenteritis (Primary 07/07/2017 Dx) 05/26/2017 Emergency Emergency Medicine Sergei Etienne MD Herpes zoster with complication (Primary Dx) after 08/06/2016 Social History Tobacco Use Types Packs/Day Years Used Date Never Smoker Smokeless Tobacco: Never Used Alcohol Use Drinks/Week oz/Week Comments No Sex Assigned at Date Recorded Not on file Last Filed Vital Signs Vital Sign Reading Time Taken Blood Pressure 146/67 07/07/2017 3:00 AM CDT Pulse 84 07/07/2017 3:00 AM CDT Temperature 36.9 C (98.4 F) 07/07/2017 3:00 AM CDT Respiratory Rate 14 07/07/2017 3:00 AM CDT Oxygen Saturation 96% 07/07/2017 3:00 AM CDT Inhaled Oxygen - - Concentration Weight 113 kg (250 lb) 05/26/2017 9:22 AM [facility] Height 175.3 cm (5' 9") 07/06/2017 8:58 PM CDT Body Mass Index 36.92 05/26/2017 9:22 AM [facility] Plan of Treatment Health Maintenance Due Date Last Done Comments COLONOSCOPY 1992 ZOSTER VACCINE 2002 PNEUMOCOCCAL 2007 POLYSACCHARIDE VACCINE AGE 65 AND OVER PNEUMOCOCCAL-13 2007 INFLUENZA VACCINE 11/19/2017 Results * CT Abdomen Pelvis W Contrast (07/07/2017 1:40 AM) Specimen Performing Laboratory [address] [address] Narrative EXAMINATION:CT ABDOMEN PELVIS W CONTRAST CLINICAL HISTORY:abd distensionvomitingliquid stool.Assess sbo. TECHNIQUE: Multiple axial images of the abdomen and pelvis were obtained following intravenous administration of iodinated contrast. Sagittal and coronal computerized reformatted images were also obtained. CT imaging was performed with iterative reconstruction technique and/or automated exposure control to reduce radiation dose. COMPARISON:01/12/2016 IMPRESSION: Coronary artery calcifications are identified. Patient is status post cholecystectomy. Liver, spleen, pancreas, adrenal glands are normal. Simple cysts are seen of the kidneys. No hydronephrosis or hydroureter. Bladder is normal. No free intraperitoneal fluid or air. Atherosclerotic vascular calcifications are seen. Diverticulosis is seen without diverticulitis. Circumferential wall thickening of ascending colon is identified (series 2, image [id number]). This could just be secondary to incomplete distention; however, an underlying mass cannot be excluded. Correlation with colonoscopy is advised. Appendix is normal. No gastrointestinal tract obstruction. A diverticulum is seen of transverse portion of the duodenum. No acute osseous abnormalities. Mild degenerative change of lower thoracic and lumbar spine. CONCLUSION: No emergent findings. Circumferential wall thickening of ascending colon is seen, which could just be secondary to incomplete distention. Underlying mass cannot be excluded. Correlation with colonoscopy is advised. [facility]-[id number] Procedure Note Hm Interface, Radiology Results Incoming - 07/07/2017 2:04 AM CDT EXAMINATION: CT ABDOMEN PELVIS W CONTRAST CLINICAL HISTORY: abd distension vomiting liquid stool. Assess sbo. TECHNIQUE: Multiple axial images of the abdomen and pelvis were obtained following intravenous administration of iodinated contrast. Sagittal and coronal computerized reformatted images were also obtained. CT imaging was performed with iterative reconstruction technique and/or automated exposure control to reduce radiation dose. COMPARISON: 01/12/2016 IMPRESSION: Coronary artery calcifications are identified. Patient is status post cholecystectomy. Liver, spleen, pancreas, adrenal glands are normal. Simple cysts are seen of the kidneys. No hydronephrosis or hydroureter. Bladder is normal. No free intraperitoneal fluid or air. Atherosclerotic vascular calcifications are seen. Diverticulosis is seen without diverticulitis. Circumferential wall thickening of ascending colon is identified (series 2, image [id number]). This could just be secondary to incomplete distention; however, an underlying mass cannot be excluded. Correlation with colonoscopy is advised. Appendix is normal. No gastrointestinal tract obstruction. A diverticulum is seen of transverse portion of the duodenum. No acute osseous abnormalities. Mild degenerative change of lower thoracic and lumbar spine. CONCLUSION: No emergent findings. Circumferential wall thickening of ascending colon is seen, which could just be secondary to incomplete distention. Underlying mass cannot be excluded. Correlation with colonoscopy is advised. [facility]-[id number] * CBC with platelet and differential (07/06/2017 10:50 PM) Component Value Ref Range WBC 8.7 4.2 - 11.0 k/uL RBC 5.22 4.04 - 5.86 m/uL HGB 15.2 13.0 - 17.3 g/dL HCT 44.8 34.0 - 45.0 % MCV 85.8 80.0 - 98.0 fL MCH 29.1 27.0 - 34.0 pg MCHC 33.9 31.5 - 36.5 g/dL RDW - SD 41.5 37.0 - 51.0 fL MPV 11.4 (H) 7.4 - 10.4 fL Platelet count 152 150 - 400 k/uL Nucleated RBC 0.00 /100 WBC Neutrophils 69.7 (H) 36.0 - 66.0 % Lymphocytes 22.5 (L) 24.0 - 44.0 % Monocytes 6.7 (H) 0.0 - 6.0 % Eosinophils 0.6 0.0 - 6.0 % Basophils 0.2 0.0 - 1.2 % Immature granulocytes 0.3 0.0 - 1.0 % Specimen Performing Laboratory Blood [facility] OF PATHOLOGY AND GENOMIC MEDICINE [address] [place] [address] * Urinalysis screen and microscopy, with reflex to culture (07/06/2017 9:30 PM) Component Value Ref Range Specimen site Clean catch Color, UA Yellow Appearance, UA Clear Specific gravity, UA 1.020 1.001 - 1.035 pH, UA 5.0 5.0 - 8.5 Protein, UA Negative Negative Glucose, UA Negative Negative Ketones, UA Trace (A) Negative Bilirubin, UA Negative Negative Blood, UA Negative Negative Nitrite, UA Negative Negative Urobilinogen, UA Negative <2.0 Leukocyte esterase, UA Negative Negative WBC, UA 3 (H) 0 - 1 /HPF RBC, UA 1 0 - 1 /HPF Bacteria, UA None seen None seen Yeast, UA None seen Yeast with pseudohyphae, None seen UA Hyaline casts, UA 1 /LPF Specimen Performing Laboratory Urine [facility] OF PATHOLOGY AND GENOMIC MEDICINE [address] [place] [address] * Urine culture (07/06/2017 9:30 PM) Component Value Ref Range Urine culture SEE COMMENTComment: Bacteriuria screen negative. Specimen Performing Laboratory [facility] OF PATHOLOGY AND GENOMIC MEDICINE [address] [place] [address] * Estimated GFR (07/06/2017 12:25 PM) Component Value Ref Range GFR Non Af Amer 54 (A) mL/min/1.73 m2 GFR Af Amer 65 mL/min/1.73 m2 Comment: Chronic kidney disease: <60 mL/min/1.73m2 Kidney failure: <15 mL/min/1.73m2 The estimated GFR is calculated from the IDMS-traceable Modification of Diet in Renal Disease Equation. The accuracy of the calculation is poor when the creatinine is normal. Calculated values >90 mL/min/1.73m2 are not reported. This equation has not been validated in children (<18 years), women, the elderly (>70 years), or ethnic groups other than Caucasians and Americans. Specimen Performing Laboratory Plasma specimen [facility] OF PATHOLOGY AND GENOMIC MEDICINE [address] [place] [address] * Lipase level (07/06/2017 12:25 PM) Component Value Ref Range Lipase 337 (H) 65 - 230 U/L Specimen Performing Laboratory Plasma specimen [facility] OF PATHOLOGY AND GENOMIC MEDICINE [address] [place] [address] * Comprehensive metabolic panel (07/06/2017 12:25 PM) Component Value Ref Range Sodium 133 (L) 135 - 150 mEq/L Potassium 3.7 3.5 - 5.0 mEq/L Chloride 97 (L) 100 - 109 mEq/L CO2 27 24 - 32 mmol/L Anion gap 9 7 - 15 mEq/L Comment: Starting from July , anion gap calculation no longer incorporates potassium. Please note the change. BUN 29 (H) 7 - 18 mg/dL Creatinine 1.3 0.8 - 1.5 mg/dL Glucose 126 (H) 65 - 100 mg/dL Calcium 9.3 8.6 - 10.7 mg/dL Protein 8.9 (H) 6.3 - 8.2 g/dL Albumin 3.9 3.2 - 5.0 g/dL A/G ratio 0.8 0.7 - 3.8 Alkaline phosphatase 73 30 - 120 U/L AST 19 15 - 37 U/L ALT 20 (L) 30 - 65 U/L Total bilirubin 1.6 (H) 0.2 - 1.2 mg/dL Specimen Performing Laboratory Plasma specimen [facility] OF PATHOLOGY AND GENOMIC MEDICINE [address] [place] [address] after 08/06/2016 Insurance Payer Benefit Subscriber ID Type Phone Address Plan / Group [employer] xxxxxxxxx [facility]
== END | disposition home or self-care (01) ==
LOC: OR 06:04 → EDBD 08:00
PROVIDERS: ATTEND Internal Medicine Gastroenterology
DX: K29.70 Gastritis, unspecified, without bleeding (principal); K21.9 Gastro-esophageal reflux disease without esophagitis; K44.9 Diaphragmatic hernia without obstruction or gangrene; K57.30 Diverticulosis of large intestine without perforation or abscess without bleeding; K64.8 Other hemorrhoids; I25.810 Atherosclerosis of coronary artery bypass graft(s) without angina pectoris; I11.0 Hypertensive heart disease with heart failure; I50.9 Heart failure, unspecified; E78.5 Hyperlipidemia, unspecified; E11.9 Type 2 diabetes mellitus without complications; Z01.810 Encounter for preprocedural cardiovascular examination; Z01.812 Encounter for preprocedural laboratory examination; Z79.02 Long term (current) use of antithrombotics/antiplatelets; Z95.1 Presence of aortocoronary bypass graft
CPT/HCPCS: 36415 ×2; 43235; 45378; 82948; 85025; 93005; J2250